=== PATIENT | female | born 1945 | race Caucasian/White ===

== ENCOUNTER → 2016-07-27 | Outpatient (CLI) | payer MEDICARE, OTHER ==
--- NOTE | 2016-08-03 13:49 | SS ---
ADMIT: 07/27/2016 RM/LOC: [facility] MR#: [id number] [facility] [id number] [place], [place] [address] [place] [address] Sleep Study SEX: F AGE: 71 : 1945 STUDY DATE: 07/27/2016 CLINICAL HISTORY: A 71-year-old female, body mass index of 29, 64 inches tall, 170 pounds with known history of obstructive sleep apnea for CPAP titration. TECHNICAL DESCRIPTION: CPAP titration performed on night of 07/27/2016, attended by trained neurology technologist. TITRATION FINDINGS: TITRATION DESCRIPTION: The patient was titrated from 15 cm of CPAP to 16 cm of CPAP. Small Eson mask was used as interface. SLEEP: Total time in bed is 436 minutes, total sleep time 384 minutes, sleep efficiency 88.1%. 66.8% hours spent in stage II sleep, 20.5% hours spent in stage REM. BREATHING: Excellent resolution of obstructive sleep apnea was seen on CPAP 16 cm. The patient was seen in REM sleep in supine position. OXYGEN SATURATION: Mean sleeping oxygen 94%. CARDIAC: Average heart rate 49 beats per minute. MOVEMENTS/POSITION: During the study, the patient slept in the supine lateral position with no significant leg movements. IMPRESSION/PLAN: Recommend using CPAP 16 cm with mask as mentioned above. Recommend losing weight, avoiding sedatives or alcohol, refrain from driving if excessively sleepy, recommend avoiding sleeping in supine position. Clinical correlation needed. Miguel Hillman MD/ bassam JOB #: [id number] CC: Keny Bentley, Attending Physician Socrates Burdick MD, Family Physician Keny Bentley
== END | disposition home or self-care (01) ==
LOC: RESC 19:55
DX: G47.33 Obstructive sleep apnea (adult) (pediatric) (principal)